=== PATIENT | female | born 1970 | race African-American/Black ===

== ENCOUNTER 2020-09-29 11:16 | Outpatient (CLI) | payer OTHER, SELFPAY ==
--- NOTE | ~2020-09-29 | CT_ITS ---
EXAMINATION: CT abdomen pelvis wo con DATE: 09/29/2020 11:55 INDICATION: Abdominal hernia TECHNIQUE: Computed tomography (CT) of the abdomen and pelvis was performed without intravenous contr ast. Automated exposure control and iterative reconstruction technique were employed. Exam dose: 559 .10 mGy-cm total exam DLP. COMPARISON: None. FINDINGS: Normal heart size. No pericardial or pleural effusion. The lung bases are clear. 2 hepatic cysts are noted, measuring up to 1.5 cm. The liver is otherwise unremarkable. The gallbladd er is present. No pericholecystic fluid or fat stranding. No bile duct dilatation. No pancreatic mass lesion, calcification or ductal dilatation. Normal splenic size. Normal morphology of the left adrenal gland. 12 mm right adrenal mass, most likely an adenoma if ther e is no history of malignancy. Approximately 2.5 mm nonobstructing right renal calculus. Approximately 2.5 mm nonobstructing left renal calculus. No ureteral calculus or hydroureteronephrosis. Normal caliber of the abdominal aorta. No intraperitoneal or retroperitoneal or pelvic mass lesion or adenopathy or ascites. Retroverted uterus. The urinary bladder is unremarkable. Mild colonic diverticulosis; no CT evidence of diverticulitis. Normal appendix. No bowel obstruction, bowel wall thickening, pneumatosis or intraperitoneal free air. Right L5 pars intra-articularis defect. Left L5 pars interarticularis is intact. No spondylolisthesis . No suspicious osteolytic or osteoblastic lesions are noted. IMPRESSION: 2 hepatic cysts measuring up to 1.5 cm Approximately 2.5 mm nonobstructing calculus of each kidney Mild colonic diverticulosis; no CT evidence of diverticulitis Retroverted uterus Normal appendix Right L5 pars interarticularis defect Reviewed, dictated and finalized at [facility] Reviewed, dictated and finalized at [facility].
== END 2020-09-29 11:17 | disposition home or self-care (01) ==
LOC: ANHIMG 11:23
PROVIDERS: Visit Provider Surgery Plastic and Reconstructive Surgery
DX: K46.9 Unspecified abdominal hernia without obstruction or gangrene (principal); K76.89 Other specified diseases of liver; N20.0 Calculus of kidney; K57.90 Diverticulosis of intestine, part unspecified, without perforation or abscess without bleeding; N85.4 Malposition of uterus; M53.86 Other specified dorsopathies, lumbar region
CPT/HCPCS: 74176

== ENCOUNTER 2021-01-22 00:20 | Day surgery (SDC) | payer OTHER, SELFPAY ==
[2021-01-14 12:42] VITALS: BMI 29.6
--- NOTE | 2021-01-14 12:52 | PC.NURSE ---
Report to the Outpatient Waiting Room, entrance under the green pavilion located off [facility], at time 1100 on date 01/22/21. OR Time: 1300. - You and your visitor will be asked a series of questions to screen for COVID 19 for your protection. - A mask is required within the hospital. - Only one visitor is allowed at this time. Patient visitors will be guided where to wait when not with patient. Preoperative COVID Testing Requirements: No COVID Test needed if: (proof is required; if not received patient will have Rapid Test prior to entry) - Patient has received COVID Vaccine at least 14 days prior to procedure date or - Patient has positive COVID test result within last 90 days of surgery date. COVID Test needed if above criteria is not met If not COVID vaccinated a COVID test must be conducted within 72 hours of surgery and patient is asked to isolate self from time of testing until procedure. You will go to the [facility] for your COVID testing. The [facility] site is located at the corner of [address] from [facility]. You will only be called if COVID results are positive and your surgeon may reschedule your elective surgery date. Patients may have clear liquids (water, carbonated beverages, clear teas, apple juice) until 3 hours prior to surgery with a maximum of 20 ounces. - No food from midnight until time of surgery - Infants may have breast milk until 4 hours before surgery, infant formula 6 hours prior to surgery. - Children will be allowed to drink immediately following surgery. If applicable, please bring a bottle or sippy cup to assist with drinking. Juice, water, soda, and popsicles are readily available. For infants on formula, please bring formula the day of surgery. Pacifiers are allowed. Take the following medications with a SIP of water the morning of surgery: NONE Medications to discontinue per physician: N/A Date to take last dose: N/A Please no make-up, nail cayman islander, hairspray, perfume, deodorant, or body powder the day of surgery. No jewelry (including any body piercings) or valuables the day of surgery, leave them at home. Please take a shower or bath the night before, or the morning of, surgery with an antibacterial soap. Wear comfortable, loose fitting clothing. Children are encouraged to wear pajamas. - Jewelry must be removed prior to entering the operating room. Rings and piercings that are not removed may be cut off. - The hospital will not accept responsibility for valuables. - Please leave all valuables, including medications, at home the day of surgery. If you are going home after surgery, a licensed superintendent drivers must drive you home. - NO public transportation without another adult. - We recommend that an adult stay with you for 24 hours following discharge. - We also recommend that you do not drive, make important decision, drink alcoholic beverages, or take any drugs that were not prescribed by your health care provider for at least 24 hours after your discharge time. For Pediatric surgeries, we recommend two adults accompany the child home (only one inside the building at this time). Follow any additional instructions given to you from your surgeon. Telephone instructions given to SAMMI LOPEZ and asked if any additional questions and then verbalized understanding. Patient advised to call surgeon office or pre surgery nurse liaison [phone] if any additional questions.
[2021-01-22] VITALS (9 sets, daily range): BP systolic 87–133; BP diastolic 62–99; PULSE 73–94; RESP 15–20; TEMP 36.3–36.8; O2SAT 93–100
[2021-01-22] MEDS: LACTATED RINGERS 1,000 ML 30 ML IV CONT ×2 (06:30→10:39)
[2021-01-22 06:34] LABS: Urine Cotinine NEGATIVE
--- NOTE | 2021-01-22 06:36 | P.PNAN_ITS ---
Anes - Initial Pre Proc Eval Procedure: Operation Date: 01/22/21 07:30 Proposed Procedures p Abdominoplasty - Edis Park MD Date/Time: 01/22/21 06:36 Surgeon: Edis Park MD Pre Op Diagnosis: skin laxity Patient Data Age: 50 Gender: F Height: 1.65 m Weight: 80.74 kg Allergies Allergy/AdvReac Type Severity Reaction Status Date / Time No Known Allergies Allergy Unverified 01/14/21 12:41 Home Medications Medication Instructions Recorded Confirmed Type docusate sodium 100 mg capsule 100 mg PO DAILY #14 cap 01/08/21 01/14/21 Rx ondansetron HCl 4 mg tablet 4 mg PO Q8H #21 tablet 01/08/21 01/14/21 Rx carisoprodol 350 mg tablet 350 mg PO TID PRN #21 tablet 01/09/21 01/14/21 Rx diazepam 5 mg tablet 5 mg PO TID PRN #15 tablet 01/09/21 01/14/21 Rx oxycodone-acetaminophen 5 mg-325 1 tablet PO Q6H PRN #30 tablet 01/09/21 01/14/21 Rx mg tablet zolpidem [Ambien] 5 mg PO HS 01/14/21 01/14/21 History Laboratory Tests 01/22/21 06:15 Cotinine Negative Patient hx anesthesia problems: none Family hx anesthesia problems: none Results Review: All pre-operative results and documents have been reviewed as part of the pre-operative evaluation. [facility] Surgical History Surgical History History of Social History Social History Smoking status: Never smoker Alcohol intake: never Substance use: never Substance use type: does not use Living arrangements: alone Spiritual care concerns: No Anes - Eval Final PreProcedure Day of Procedure 01/22/21 06:36 Patient weight: overweight Heart: regular rate and rhythm Lungs: clear to auscultation Airway: Mallampati scale class II Neurological: alert and oriented Last oral intake: >/= 8 hours ASA classification: II Emergent: no Anesthetic plan: proceed Anesthesia type and monitoring: general ETT and standard monitoring Results Review: All pre-operative results and documents have been reviewed as part of the pre-operative evaluation. Informed Consent: The patient's anesthetic plan and its attendant risks and benefits were discussed with the patient/family/POA. Questions were solicited and answers provided to the satisfaction of the patient/family/POA.
--- NOTE | 2021-01-22 06:56 | WPDHPUPDATE1 ---
History and Physical Update Update Date/Time: 01/22/21 06:56 History and Physical has been reviewed, including an updated exam of the patient. There are NO changes in the patient's condition. Risks, benefits, and alternatives have been discussed and questions answered. Patient agrees to proceed with procedure.
[2021-01-22] MEDS: TRANEXAMIC ACID 1,000MG/ISO100 1,000 MG/100 ML BAG 200 MG IVPB (07:00)
--- NOTE | 2021-01-22 07:07 | P.OP_ITS ---
Procedure Note - Detailed Date of Procedure 01/22/21 Pre-op Diagnosis skin laxity Post-op Diagnosis same Procedure Performed Progressive tension abdominoplasty Surgeon Edis Park MD Anesthesia general Findings Tissue removed: 2252 grams Description of Procedure They are here today for abdominoplasty. Previously and again today the risks, benefits, alternatives were discussed in extensive detail. I wanted them to be very realistic about the risks involved as well as expectations. We discussed aftercare and what to monitor for. I was very upfront about the risks of wound breakdown leading to loss of skin, open wounds, and need for additional proc edures with permanent abdominal deformity. We discussed DVT/PE risks and management. Made sure answered all of their questions to their satisfaction today and consent was obtained. They were marked in the preoperative holding area with their verification. The patient was taken to the operating room placed supine on the operating table. Anesthesia was provided by anesthesiology. A Lemon catheter was started. They were prepped and draped in a standard sterile fashion. A surgical time-out was taken. I placed the patient in a flexed position to verify the upper and lower markings would reach. I then placed supine. A thorough abdominal examination was completed. Stab incisions were made and tumescent solution infiltrated. A liposuction basket cannula was utilized to provide discontinuous undermining. A 10 blade was used to make the upper incision. I continued dissection down to the level of fascia. Elevated just what was necessary for repair of the diastasis. I then again flexed the bed to verify the upper skin flap would reach the lower markings without tension. Once verified I placed her supine once again and a 10 blade used to make the lower incision. I elevated up to level the umbilicus and left the umbilicus intact on a well-vascularized stalk. The intervening tissue was removed. A 2 mm blunt cannula with 0.5% bupivicaine was injected deep to the fascia cachorro aterally. I plicated the diastasis recti using 0 PDO stratafix barbed suture. This was in 2 separate layers using 2 separate sutures as well. I repaired around the umbilicus leaving plenty of room for well-vascularized stalk of the umbilicus with 2-0 PDS. I also repaired lateral to the rectus using two layers of 0 PDO stratafix. The patient was flexed and starting from superior to inferior began plication using 2-0 Vicryl to obliterate all space in a standard progressive tension fashion. At the umbilicus I marked out the location of the skin and inset this with 3-0 Monocryl and 4-0 Vicryl. I continued the remainder of the plication using 2-0 Vicryl until I reached my lower planned scar line. I trimmed any excess skin of the upper flap making sure this was a tension-free closure. I then approximated using a 3 point suture with 2-0 Vicryl followed by 3-0 stratafix ,running subcuticular 4-0 Monocryl, and tissue glue. Fluffs and an abdominal binder were placed. The patient was transferred to the bed in a flexed position. Awoken and taken to the PACU without difficulty. All instrument and sponge counts were correct at the end of the case. Estimated Blood Loss 50 Drains No Packing No Pathology none sent Complications No immediate complications Condition stable Disposition PACU
[2021-01-22] MEDS: LACTATED RINGERS IRRIG 1,000 ML, LIDOCAINE HCL 1% LOCAL INJ 50 ML, EPINEPHrine HCL INJ ... INFILTRATE (07:26)
[2021-01-22] MEDS: BUPIVACAINE HCL 0.5% PF 30 ML VIAL INFILTRATE (07:26)
[2021-01-22] MEDS: ceFAZolin 2 GM/D5W 50 ML 2 GM/50 ML BAG IVPB (07:26)
--- NOTE | 2021-01-22 10:15 | SUR.OPER ---
URINE:300cc
--- NOTE | 2021-01-22 10:15 | SUR.OPER ---
EBL:50cc
[2021-01-22] MEDS: fentaNYL CITRATE INJ (*CRX) 100 MCG/2 ML VIAL 25 MCG IV PUSH ×4 (10:50→11:26)
--- NOTE | 2021-01-22 11:48 | PC.NURSE ---
This patient, Mary Ann Henriquez, was received from PACU on 01/22/21 at 1148. Patient/family oriented to unit policies and routines
[2021-01-22] MEDS: LACTATED RINGERS 1,000 ML 125 ML IV CONT ×2 (12:40→20:46)
[2021-01-22] MEDS: MORPHINE SULFATE (*CRX) 2 MG/ML INJ IV PUSH ×2 (12:42→15:03)
[2021-01-22] MEDS: carisoprodoL (*CRX) 350 MG TABLET PO (17:20)
[2021-01-22] MEDS: ENOXAPARIN 40 MG/0.4 ML SYRINGE SUB-Q (17:20)
[2021-01-22] MEDS: oxyCODONE/ACETAMINOPHEN (*CRX) 5-325 MG TABLET PO (19:01)
[2021-01-22] MEDS: DOCUSATE SODIUM 100 MG CAPSULE PO (21:23)
[2021-01-23] MEDS: MORPHINE SULFATE (*CRX) 2 MG/ML INJ IV PUSH ×3 (00:16→05:02)
[2021-01-23 01:00] VITALS: BP 122/64; PULSE 92; RESP 16; TEMP 36.7; O2SAT 96
[2021-01-23] MEDS: carisoprodoL (*CRX) 350 MG TABLET PO ×3 (01:11→12:52)
[2021-01-23 04:45] VITALS: BP 126/70; PULSE 86; RESP 18; TEMP 37.1; O2SAT 95
[2021-01-23] MEDS: LACTATED RINGERS 1,000 ML 125 ML IV CONT (05:33)
--- NOTE | 2021-01-23 06:31 | WPDPN ---
Progress Note: A&P Assessment and Plan (1) Skin laxity: Code(s): L57.4 - Cutis laxa senilis Status: Acute Assessment and Plan: She is doing very well after progressive tension abdominoplasty. Will plan for discharge home. I will see her back. Call with any questions or concerns. Today we had a lengthy discussion about the care. What monitor for. Activity limitations. This was a lengthy open-ended conversation making sure she was well informed. She understands she can call at any time with any questions or concerns. Will plan for discharge home. I will see her back. (2) History of COVID-19: Code(s): Z86.16 - Personal history of COVID-19 Status: Acute Assessment and Plan: December 2020 Subjective Date/time seen: 01/23/21 06:31 She is doing very well after progressive tension abdominoplasty. She has tolerated p.o.. Ambulated. Pain is controlled. No shortness of breath. No chest pain. No calf tenderness. Review of Systems Review of Systems: All systems reviewed & are unremarkable except as noted in HPI and below Exam Narrative: Alert and oriented no obvious distress Respiratory unlabor Abdomen soft. No signs of infection. No hematoma. No seroma. Good color and capillary refill. No calf tenderness. Negative Homans. Objective Data Vital Signs Vital Signs: Vital Signs - 24 hr 01/22/21 10:45 01/22/21 11:00 01/22/21 11:15 Temperature 36.7 C Pulse Rate 93 81 83 Respiratory Rate 16 16 20 Blood Pressure 133/99 H 130/89 119/96 H Pulse Oximetry 100 100 96 01/22/21 11:30 01/22/21 12:10 01/22/21 15:30 Temperature 36.8 C 36.3 C L Pulse Rate 73 74 94 Respiratory Rate 15 16 16 Blood Pressure 118/89 116/83 87/62 L Pulse Oximetry 93 94 96 01/22/21 19:00 01/22/21 20:00 01/23/21 01:00 Temperature 36.7 C 36.7 C Pulse Rate 89 88 92 Respiratory Rate 18 16 Blood Pressure 106/76 116/78 122/64 Pulse Oximetry 97 95 96 01/23/21 04:45 Temperature 37.1 C Pulse Rate 86 Respiratory Rate 18 Blood Pressure 126/70 Pulse Oximetry 95 Intake/Output Intake/Output: Intake & Output 01/20/21 01/21/21 01/22/21 01/23/21 23:59 23:59 23:59 23:59 Intake Total 2540 1000 Output Total 800 150 Balance 1740 850 Meds/Results Medications: Active Medications Generic Name Dose Route Start Last Admin Trade Name Freq PRN Reason Stop Dose Admin Carisoprodol 350 mg 01/22/21 18:00 01/23/21 01:11 Carisoprodol (*Crx) 350 Mg Tablet PO 350 mg Q6HR HARSH Administration Diazepam 5 mg 01/22/21 10:19 Diazepam (*Crx) 5 Mg Tablet PO TID PRN Anxiety Docusate Sodium 100 mg 01/22/21 21:00 01/22/21 21:23 Docusate Sodium 100 Mg Capsule PO 100 mg Q12HR HARSH Administration Enoxaparin Sodium 40 mg 01/22/21 17:00 01/22/21 17:20 Enoxaparin 40 Mg/0.4 Ml Syringe SUB-Q 40 mg DAILY HARSH Administration Lactated Ringer's 1,000 mls @ 125 mls/hr 01/22/21 10:20 01/23/21 05:33 Lr - Lactated Ringers Iv IV CONT 125 mls/hr .Q8H HARSH Administration Morphine Sulfate 2 mg 01/22/21 10:19 01/23/21 05:02 Morphine Sulfate (*Crx) 2 Mg/Ml Inj IV PUSH 2 mg Q2H PRN Administration Pain Ondansetron HCl 4 mg 01/22/21 10:19 Ondansetron Inj 4 Mg/2 Ml Vial IV PUSH Q6H PRN Nausea Oxycodone/Acetaminophen 1 - 2 tablet 01/22/21 10:19 01/22/21 19:01 Oxycodone/Acetaminophen (*Crx) 5-325 Mg Tablet PO 2 tablet Q6H PRN Administration Pain Labs Labs: Laboratory Results - last 24 hr 01/22/21 06:15 Cotinine Negative
--- NOTE | 2021-01-23 06:34 | P.DS_ITS ---
DS: Admitting Diagnosis Discharge Date 01/23/2021 Admitting Diagnosis Skin laxity DS: Discharge Diagnosis Discharge Diagnosis (1) Skin laxity: Code(s): L57.4 - Cutis laxa senilis Status: Acute (2) History of COVID-19: Code(s): Z86.16 - Personal history of COVID-19 Status: Acute DS: Summary Hospital Course Hospital Course: She underwent progressive tension abdominoplasty. Postoperatively she has done very well. Will plan for discharge home Time Spent with Patient Time attestation: Total time spent providing and/or coordinating discharge services: Exam Narrative: Alert and oriented no obvious distress Respiratory unlabor Abdomen soft. No signs of infection. No hematoma. No seroma. Good color and capillary refill. No calf tenderness. Negative Homans. DS: Data Data Completed and Pending Labs on day of discharge: Labs from last 24 hours 01/22/21 06:15 Cotinine Negative Discharge Plan Discharge Patient Disposition: Home, Self-Care Discharge Instructions: POST OPERATIVE DISCHARGE INSTRUCTIONS EDIS PARK M.D. [facility] PLASTIC SURGERY [facility] [facility] [address] [place] [address] * No driving for 24 hours after anesthesia and while you are taking pain medication. * Take all prescribed medication as directed * Diet as tolerated. * No lifting or activity that raises blood pressure for 48 hours. * Regular walking / ambulation. * No showering until directed to. Once you shower do not take pain medication before showering as the combination of medication and heat may cause you to feel dizzy or pass out. * No pools or tubs for 2 weeks. * Call with any questions or concerns. * No straining or lifting more than 20 pounds for 6 weeks. * Slowly stand up straight as tolerated over 1 week. * Dressing Care: May shower in 24 hours. If you have any questions or concerns, please call the office . If it is after hours you will be directed to the financial sales consultant exchange. Shortness of breath, chest pain, or other medical emergency dial 911 / proceed to the Emergency Room. Stand Alone Forms: General Discharge Instructions Follow-up/Referrals: Edis Park MD [Physician] - 1 Week Discharge Medications: Continued docusate sodium [Colace] 100 mg capsule 100 mg PO DAILY Qty: 14 RF: 0 ondansetron HCl [Zofran] 4 mg tablet 4 mg PO Q8H Qty: 21 RF: 0 oxycodone-acetaminophen [Percocet] 5-325 mg tablet 1 tablet PO Q6H PRN (Reason: pain) Qty: 30 RF: 0 carisoprodol [Soma] 350 mg tablet 350 mg PO TID PRN (Reason: muscle pain) Qty: 21 RF: 0 diazepam [Valium] 5 mg tablet 5 mg PO TID PRN (Reason: anxiety) Qty: 15 RF: 0 zolpidem [Ambien] 5 mg Tablet 5 mg PO HS RF: 0
[2021-01-23] MEDS: DOCUSATE SODIUM 100 MG CAPSULE PO (07:01)
[2021-01-23] MEDS: oxyCODONE/ACETAMINOPHEN (*CRX) 5-325 MG TABLET PO (07:01)
[2021-01-23 08:40] VITALS: BP 111/78; PULSE 92; RESP 16; TEMP 37.4; O2SAT 93
--- NOTE | 2021-01-23 10:17 | WPDANESPN ---
Anes - Prog Note Post-Op Date/Time: 01/23/21 10:17 Cardiovascular status: normal Respiratory status: normal Airway patency: baseline Mental status: baseline Post-Op hydration status: normal Vital Signs: Last Vital Signs Temp 37.4 C 01/23/21 08:40 Pulse 92 01/23/21 08:40 Resp 16 01/23/21 08:40 BP 111/78 01/23/21 08:40 Pulse Ox 93 01/23/21 08:40 Pain Score (VAS): 0 I/O: Intake & Output 01/22/21 01/23/21 01/23/21 23:59 07:59 15:59 Intake Total 1240 1000 Output Total 650 550 Balance 590 450 Post-procedural complaints: none Patient Feedback: Patient satisfied with anesthetic care.
[2021-01-23] MEDS: IBUPROFEN 600 MG TABLET PO (10:43)
[2021-01-23] MEDS: ACETAMINOPHEN 325 MG TABLET 650 MG PO (12:52)
[2021-01-23 13:00] VITALS: BP 122/87; PULSE 82; RESP 18; TEMP 36.8; O2SAT 95
== END 2021-01-23 14:52 | disposition home or self-care (01) ==
LOC: ANHSURGERY 07:12 → ANHOB2 12:31
PROVIDERS: Visit Provider Surgery Plastic and Reconstructive Surgery
PROC: (CPT 15830; principal; 2021-01-22 07:30)
DX: Z41.1 Encounter for cosmetic surgery (principal); L57.4 Cutis laxa senilis; Z79.899 Other long term (current) drug therapy; Z86.16 Personal history of COVID-19
CPT/HCPCS: 15830; 15847; 80307; 99199; A9270; J0171; J0330; J0690; J1100; J1170; J1650; J2250; J2270; J2405; J2704; J3010; J7120

== ENCOUNTER 2024-12-16 13:27 | Outpatient (CLI) | payer MEDICAID, SELFPAY ==
--- NOTE | ~2024-12-16 | MM_ITS ---
EXAMINATION: MM screening gen BI w jeremiah HISTORY: Screening TECHNIQUE: Craniocaudal and mediolateral oblique 3-D tomosynthesis images were obtained and synthetic 2-D images were generated. CAD analysis was submitted and interpreted. COMPARISON: No prior mammogram is available for comparison at this institution. BREAST PARENCHYMAL COMPOSITION: Not Dense: The breasts are almost entirely fatty. FINDINGS: There is no evidence of suspicious mass, calcification, or architectural distortion to suggest malignancy in either breast. There has been no suspicious interval change. IMPRESSION: 1. No mammographic evidence of malignancy. 2. Recommend routine screening mammography in one year. BI-RADS Category 1: Negative Reviewed, dictated and finalized at location O. ATE SECRETARY
--- NOTE | ~2024-12-16 | DEXA_ITS ---
Bone Density Report Name: SAMMI LOPEZ Age: 54 Sex: Female Ethnicity: White Date of : 1970 Indication: postmenopausal; screening for osteoporosis; Referring Provider: GREG BOOGIE Study: Bone densitometry was performed. Exam Date: December 16, 2024 Accession number: [id number] Bone Density: Region BMD T-score Z-score Classification AP Spine(L1-L4) 0.992 -0.5 0.4 Normal Femoral Neck (Left) 0.776 -0.7 0.3 Normal Total Hip (Left) 0.983 0.3 0.9 Normal Femoral Neck (Right) 0.869 0.2 1.1 Normal Total Hip (Right) 1.040 0.8 1.4 Normal Total Hip Mean 1.011 0.6 1.2 Normal World Health Organization criteria for BMD impression classify patients as: Normal (T-score at or above -1.0), Osteopenia (T-score between -1.0 and -2.5), or Osteoporosis (T-score at or below -2.5). 10-year Fracture Risk: FRAX not reported because: All T-scores for Spine Total, Hip Total, Femoral Neck at or above -1.0 Impression: The patient has normal bone mass. Discussion: BONE DENSITY IS ABOVE THE MINIMUM DESIRABLE LEVEL AT ALL SKELETAL SITES TESTED. This patient?s bone mineral density is above the minimum desirable level (T-score -1.0 or better) at all sites measured. The patient should follow a healthful lifestyle (good nutrition with adequate calcium and vitamin D, and appropriate weight-bearing exercise). Follow-Up: Consider repeating this study in 5 years or sooner if there is some new clinical indication. Reported by: KAY on 12/16/2024 2:10:00 PM. Reviewed, dictated and finalized at location A.
--- OUTSIDE RECORDS SUMMARY | 2024-12-16 13:30 | XMS_ITS | Encounter Summary ---
Author Organization [facility] Healthcare Address [address] [place] [address] Care Team Providers Care Turbo Operator Name Role Phone Unknown, Notinfile Primary Care Provider Unavail able Alexandre Bowser MD Primary Care Provider [phone] Reason for Visit * Reason Onset Date Comments Test Results 10/16/2024 Encounter Details Date Type Department Care Team (Late st Contact Info) Description 10/16/2024 Results Follow-Up [facility] Internal Medicine [address] [place] [id number] Alexandre Bowser MD [address] [place] [id number] Hepatitis C antibody Blood, CBC with auto differential, Comprehensive metabolic panel, Additional followed-up results: 3 Social History Tobacco Use Types Packs/Day Years Used Date Smoking Tobacco: Never Smokeless Tobacco: Never AUDIT-C Answer Date Recorded Q1: How often do you have a drink containing alcohol? Never 08/15/2024 Q2: How many drinks containi ng alcohol do you have on a typical day when you are drinking? Patient does not drink Q3: How often do you have si x or more drinks on one occasion? 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 Yes Where were results relayed from in the chart? Telephone encounter Additional Questions/Comments: Patient returned call, AC read her the result notes. Patient verbalized understanding. Does message need to be routed? Yes-FYI Only documented in this encounter Plan of Treatment Not on file documented as of this encounter Visit Diagnoses Not on filedocumented in this encounter Care Teams Turbo Operator Relationship Specialty Start Date End Date Unknown, Notinfile PCP - General 05/28/22 10/17/24 Alexandre Bowser MD [facility] [place] [address] PCP - General Internal Medicine 10/18/24 documented as of this encounter
--- OUTSIDE RECORDS SUMMARY | 2024-12-16 13:31 | XMS_ITS | Clinical Summary ---
Author Organization [facility] Address [address] [place] [address] Care Team Providers Care Hse Manager Name Role Phone Alexandre Bowser MD Primary Care Provider [phone] Allergies No known active allergies Medications vitamin B complex capsule Take 1 capsule by mouth daily Active NON FORMULARY, FOR INPATIENT USE, MONOLAURIN 1000MG Active cholecalciferol (Vitamin D3) 5,000 unit tablet Active acidophilus-pec tin, citrus 100 million cell-10 mg capsule Take by mouth Activ e multivitamin with minerals tablet Take 1 tablet by mouth daily Active Active Problems Problem Noted Date Diagnosed Date Routine general medical exam ination at a health care facility 08/15/2024 Assessment & Plan (08/15/2024 9:29 AM CDT): Patient uses seatbelt. She exercises on regular basis. Encouraged exercise 30 minutes daily 5 days a week. She does not smoke or drink alcohol. Blood work was ordered. She received Tdap vaccine. Patient is followed by senior software engineer analytics. She is up-to-date with mammogram. She is scheduled for colonoscopy. Encounters Date Type Department Care Team Description 10/16/2024 Results Follow-Up [facility] Internal Medicine [address] [facility] [address] [place] [id number] Alexandre Bowser MD Hepatitis C antibody Blood, CBC with auto differential, Comprehensive metabolic panel, Additional followed-up results: 3 10/14/2024 7:40 AM CDT Lab [facility] [address] [place] [id number] Routine general medical examination at a health care facility from Last 3 Months Immunizations Immunization Administration Dates Next Due DTP 02/28/1974,10/01/1972,07/23/1972 ,06/25/1972,1971 Measles 12/07/1972 Measles / Rubella 09/27/1976 Mumps 10/27/1980 OPV 10/27/1980,07/29/1973,07/23/1972 ,06/25/1972,1971 Td, adsorbed 04/01/1991 Tdap 08/15/2024 Surgical History Surgery Date Site/Laterality Comments SECTION 02/09/1994 - 02/08/1995 Family History Medical History Relation Name Comments Lung cancer Father Stomach cancer Mother Relation Name Status Comments Father Mother Social History Tobacco Use Types Packs/Day Years Used Date Smoking Tobacco: Never Smokeless Tobacco: Never Tobacco Cessation:Counseling Given: Not Answered AUDIT-C Answer Date Recorded Q1: How often [...] on file Legal 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 Gender Identity Not on file Sexual Orientation Not on file Last Filed Vital Signs Vital Sign Reading Time Taken Comments Blood Pressure 110/72 08/15/2024 8:25 AM CDT Pulse 84 08/15/2024 8:25 AM CDT Temperature 36.1 C (97 F) 08/15/2024 8:25 AM CDT Respiratory Rate 18 08/15/2024 8:25 AM CDT Oxygen Saturation 96% 08/15/2024 8:25 AM CDT Inhaled Oxygen Concentration - - Weight 87.5 kg (193 lb) 08/15/2024 8:25 AM CDT Height 167.6 cm (5' 6) 08/15/2024 8:25 AM CDT Body Mass Index 31.15 08/15/2024 8:25 AM CDT Plan of Treatment Health Maintenance Due Date Last Done Comments Cervical Cancer Screening 1970 Colon Cancer Screening-Colonoscopy 1970 Hepatitis B Screening 10/20/1989 Breast Cancer Screening-Mammogram 03/24/2014 03/24/2013 Zoster Vaccine (1 of 2) 10/20/2021 Covid-19 Vaccine (3 - season) 2024 01/07/2021, 11/30/2020 Influenza Vaccine (#1) 2024 Depression Screening 08/15/2025 08/15/2024 Regular Well Visit/Exam 18-64 08/15/2025 08/15/2024 DTaP/Tdap/Td Vaccine (6 - Td or Tdap) 08/15/2034 08/15/2024, 04/01/1991, 02/28/1974, Additional history exists Hepatitis C Screening Completed 10/14/2024 Pneumococcal vaccine <65 Aged Out No longer eligible based on patient's age to complete this topic Procedures Procedure Name Priority Date/Time Associated Diagnosis Comments EGFR Routine 10/14/2024 7:56 AM CDT Routine general medical examination at a health care facility DIFFERENTIAL AUTO Routine 10/14/2024 7:5 6 AM CDT Routine general medical examination at a health care facility LIPID PANEL Routine 10/14/2024 7:56 AM CDT Routine general medical examination at a health care facility COMPREHENSIVE METABOLIC PANEL Routine 10/14/2024 7:56 AM CDT Routine general medical examination at a health care facility CBC WITH AUTO DIFFERENTIAL Routine 10/14/2024 7:56 AM CDT Routine general medical examination at a health care facility HEPATITIS C ANTIBODY Routine 10/14/2024 7:56 AM CDT Routine general medical examination at a health care facility SCREENING MAMMOGRAM Routine 03/24/2013 3 :47 PM JEWEL HOLE FINISH OPENER from Last 3 Months or Most Recently Relevant to Health Maintenance Results * eGFR (10/14/2024 7:56 AM CDT) [facility] eGFR >90 >=60 mL/min/1. 73 m2 Comment: Interpretive Data Reference Interval Normal >/= 90 mL/min/1.73m2 Mildly decreased* 60 - 89 mL/min/1.73m2 Mildly to moderately decreased 45 - 59 mL/min/1.73m2 Moderately to severely decreased 30 - 44 mL/min/1.73m2 Severely decreased 15 - 29 mL/min/1.73m2 Kidney Failure < 15 mL/min/1.73m2 *Relative to young adult level Estimated glomerular filtration rate is determined by the 2020 CKD-EPI equation recommended by the National Kidney Foundation (A Unifying Approach to GFR Estimation: Recommendations of the NKF-ASK Task Force on Reassessing the Inclusion of Race in Diagnosing Kidney Disease, JASN 2020). The CKD-EPI equation should not be used for patients with unstable renal function and has not been validated in children and those over 70. Current interpretive data was last reviewed 2020. Blood 10/14/2024 7:56 AM CDT 10/14/2024 8:19 AM CDT Alexandre Bowser MD LAB BLOOD ORDERABLES Final Result [facility] [address] [facility] Department of Laboratories [place], [place] [id number] * Differential, auto (10/14/2024 7:56 AM CDT) [facility] Neutrophil abs 2.90 1.50 - 6.50 K/cumm Imm gran abs 0.01 0.00 - 0.10 K/cumm [facility] Lymphocyte abs 2.04 0.80 - 3.30 K/cumm [facility] Monocyte abs 0.40 0.20 - 0.80 K/cumm [facility] Eosinophil abs 0.33 0.00 - 0.50 K/cumm [facility] Basophil abs 0.02 0.00 - 0.10 K/cumm [facility] Neutrophil pct 50.8 % [facility] Comment: Interpretive Data Percent cell count reference ranges are not reported, since discordance with absolute values may lead to misinterpretation of CBC data. Current Interpretive Data was last revised on 2017. Imm gran pct 0.2 % [facility] Comment: Interpretive Data Percent cell count reference ranges are not reported, since discordance with absolute values may lead to misinterpretation of CBC data. Current Interpretive Data was last revised on 2017. Lymphocyte pct 35.8 % [facility] Comment: Interpretive Data Percent cell count reference ranges are not reported, since discordance with absolute values may lead to misinterpretation of CBC data. Current Interpretive Data was last revised on 2017. Monocyte pct 7.0 % [facility] Comment: Interpretive Data Percent cell count reference ranges are not reported, since discordance with absolute values may lead to misinterpretation of CBC data. Current Interpretive Data was last revised on 2017. Eosinophil pct 5.8 % [facility] Comment: Interpretive Data Percent cell count reference ranges are not reported, since discordance with absolute values may lead to misinterpretation of CBC data. Current Interpretive Data was last revised on 2017. Basophil pct 0.4 % [facility] Comment: Interpretive Data Percent cell count reference ranges are not reported, since discordance with absolute values may lead to misinterpretation of CBC data. Current Interpretive Data was last revised on 2017. Blood 10/14/2024 7:56 AM CDT 10/14/2024 8:19 AM CDT Alexandre Bowser MD LAB BLOOD ORDERABLES Final Result [facility] [address] [facility] Department [place] [address] * (ABNORMAL) CBC with auto differential (10/14/2024 7:56 AM CDT) WBC 5.70 3.80 - 9.90 K/cumm Hgb 14.4 11.9 - 15.5 g/dL [facility] Hct 42.6 35.6 - 45.5 % [facility] Plt 278 150 - 400 K/cumm [facility] MPV 10.3 9.1 - 12.3 fL [facility] RBC 5.58(H) 3.90 - 5.20 M/cumm [facility] MCV 76.3(L) 81.3 - 96.4 fL [facility] MCH 25.8(L) 27.1 - 33.3 pg [facility] MCHC 33.8 32.3 - 35.7 g/dL [facility] RDW CV 13.9 11.1 - 14.9 % [facility] RDW SD 37.7 35.7 - 48.1 fL [facility] NRBC abs 0.00 0.00 - 0.01 K/cumm [facility] Blood 10/14/2024 7:56 AM CDT 10/14/2024 8:19 AM CDT Alexandre Bowser MD LAB BLOOD ORDERABLES Final Result Performing Organization Address [facility] de Phone Number [address] [place] [address] * Hepatitis C antibody Blood (10/14/2024 7:56 AM CDT) Hep C Ab Nonreactive Nonreactive Comment: Antibodies to HCV not detected. Does NOT exclude the possibility of recent exposure to HCV. Current interpretive data was last revised on 21 Interpretive Data Nonreactive: Antibodies to HCV not detected. Does NOT exclude the possibility of recent exposure to HCV. Equivocal: Equivocal for HCV antibodies. Supplemental molecular testing will be automatically performed to determine infection status in accordance with current CDC screening recommendations. Reactive: Positive for HCV antibodies. This may represent current or past HCV infection. Supplemental molecular testing will be automatically performed to determine current infection status in accordance with current CDC screening recommendations. Interpretive data was last revised on 2019. Blood 10/14/2024 7:56 AM CDT 10/14/2024 8:19 AM CDT Alexandre Bowser MD LAB MICROBIOLOGY - GENERAL ORDERABLES Final Result Performing Organization Address [facility] de Phone Number [address] [place] [address] * Lipid panel (10/14/2024 7:56 AM CDT) Cholesterol 159 30 - 199 mg/dL Comment: Interpretive Data Ages < or = 19 years Acceptable: <170 mg/dL Borderline high: 170-199 mg/dL High: >or= 200 mg/dL Ages > or = 20 years Desirable: <200 mg/dL Borderline high: 200-239 mg/dL High: >or= 240 mg/dL Literature References: 1. Expert Panel on Integrated Guidelines for Cardiovascular Health and Risk Reduction in Children and Adolescents. Pediatrics 2011;128:S213 2. NCEP Expert Panel. Circulation 2004;110:227 Current Interpretive Data was last revised on 2017. Triglycerides 69 <=149 mg/dL [facility] Comment: Interpretive Data Ages < or = 9 years Acceptable: <75 mg/dL Borderline high: 75-99 mg/dL High: >or= 100 mg/dL Ages 10 to 20 years Acceptable: <90 mg/dL Borderline high: 90-129 mg/dL High: >or= 130 mg/dL Ages > or = 20 years Desirable: <150 mg/dL Borderline high: 150-199 mg/dL High: 200-499 mg/dL Very high: >or= 499 mg/dL Literature References: 1. Expert Panel on Integrated Guidelines for Cardiovascular Health and Risk Reduction in Children and Adolescents. Pediatrics 2011;128:S213 2. NCEP Expert Panel. Circulation 2004;110:227 Current Interpretive Data was last revised on 2017. HDL 51 >=40 mg/dL [facility] Comment: Interpretive Data Ages < or = 19 years Acceptable: >45 mg/dL Borderline low: 40-45 mg/dL Low: <40 mg/dL Ages > or = 20 years Desirable: >or= 60 mg/dL Low: <40 mg/dL Literature References: 1. Expert Panel on Integrated Guidelines for Cardiovascular Health and Risk Reduction in Children and Adolescents. Pediatrics 2011;128:S213 2. NCEP Expert Panel. Circulation 2004;110:227 Current Interpretive Data was last revised on 2017. LDL, calculated 95 <=129 mg/dL [facility] Comment: Interpretive Data Ages < or = 19 years Acceptable: <110 mg/dL Borderline high: 110-129 mg/dL High: >or= 130 mg/dL Ages > or = 20 years Optimal: <100 mg/dL Near optimal: 100-129 mg/dL Borderline high: 130-159 mg/dL High: >160 mg/dL Calculated using the Raciel LDL-C estimating equation. This equation was implemented on 2023. Prior to this date LDL-C was estimated using the Friedewald equation. Literature References: 1. Expert Panel on Integrated Guidelines for Cardiovascular Health and Risk Reduction in Children and Adolescents. Pediatrics 2011;128:S213 2. NCEP Expert Panel. Circulation 2004;110:227 3. Raciel Gottlieb et al. SOPHIE Cardiol. 2019June 09;5(5):540-548. doi: 10.1001/jamacardio.2020.0013 Current Interpretive Data was last revised on 2023. Non-HDL Cholesterol 108 mg/dL [facility] Comment: Interpretive Data Ages < or = 19 years Acceptable: <120 mg/dL Borderline high: 120-144 mg/dL High: >145 mg/dL Ages > or = 20 years When triglycerides are >200 mg/dL, Non-HDL cholesterol is a secondary target of therapy with treatment goals that are 30 mg/dL greater than the LDL cholesterol target. Literature References: 1. Expert Panel on Integrated Guidelines for Cardiovascular Health and Risk Reduction in Children and Adolescents. Pediatrics 2011;128:S213 2. NCEP Expert Panel. Circulation 2004;110:227 Current Interpretive Data was last revised on 2017. Chol/HDL ratio 3 [facility] Blood 10/14/2024 7:56 AM CDT 10/14/2024 8:19 AM CDT Narrative [facility] - 10/14/2024 9:00 AM CDT Has the patient been fasting for 8 hours or more?->Yes Alexandre Bowser MD LAB BLOOD ORDERABLES Final Result [facility] [address] Department [place] [address] * Comprehensive metabolic panel (10/14/2024 7:56 AM CDT) Sodium 141 135 - 145 mmol/L Potassium, pl 4.5 3.3 - 4.9 mmol/L [facility] Chloride 107 97 - 110 mmol/L [facility] CO2 25 22 - 32 mmol/L [facility] Anion gap 9 2 - 15 mmol/L [facility] BUN 6 6 - 25 mg/dL [facility] Creatinine 0.76 0.60 - 1.10 mg/dL [facility] Glucose 105 70 - 199 mg/dL [facility] Comment: Interpretive Data Fasting glucose >/= 126 mg/dl is diagnostic for diabetes. Fasting is defined as no caloric intake for at least 8 hours. Fasting glucose between 100 mg/dl to 125 mg/dl is diagnostic of prediabetes. In a patient with classic symptoms of hyperglycemia or hyperglycemic crisis, a random glucose >/= 200 mg/dl is diagnostic for diabetes. In the absence of unequivocal hyperglycemia, results should be confirmed by repeat testing. The classification and Diagnosis of Diabetes Diabetes Care 2021; 46: S19-S40. Current interpretive data was last revised 2022. Calcium 10.0 8.5 - 10.3 mg/dL [facility] Bilirubin, total 0.3 0.1 - 1.2 mg/dL [facility] Protein, pl 7.4 6.5 - 8.5 g/dL [facility] Albumin 4.2 3.5 - 5.0 g/dL [facility] Alk phos 73 40 - 130 Units/L [facility] ALT 19 7 - 45 Units/L [facility] AST 24 10 - 45 Units/L [facility] Blood 10/14/2024 7:56 AM CDT 10/14/2024 8:19 AM CDT Alexandre Bowser MD LAB BLOOD ORDERABLES Final Result [facility] [address] [facility] Department [place] [address] * Screening Mammogram (03/24/2013 3:47 PM JEWEL [employer]LE FINISH OPENER) Anatomical Region Laterality Modality Breast N/A Mammography 03/24/2013 3:47 PM JEWEL [employer]LE FINISH OPENER Narrative 03/25/2013 4:18 PM JEWEL [employer]LE FINISH OPENER RICHI PECK M.D. FINAL REPORT ACC# Date Time Exam [id number] Mar 24, 2013 15:47:00 [facility] [address] Screening Mamm Bilat Technologist(s): Yolande Victoria; ; EXAMINATION: Mammogram Technique: Bilateral Full-Field Digital Screening Mammogram was performed. Views obtained: bilateral craniocaudal and bilateral mediolateral oblique. Computer Aided Detection was performed with [employer] 1.3 version 9.3. Mammogram Findings: This is a baseline study. There are scattered fibroglandular densities. There is no suspicious abnormality in either breast. IMPRESSION: Annual screening mammography is recommended. OVERALL FINAL ASSESSMENT: BI-RADS CATEGORY 1: Negative. Requested By: EDIS MATTHEW M.D. Dictated By: RICHI PECK M.D. on Mar 25 2013 4:18P This document has been electronically signed by: RICHI PECK M.D. on Mar 25 2013 4:17P Procedure Note Provider, MD Bouchra - 06/07/2016 RICHI PECK M.D. FINAL REPORT ACC# Date Time Exam [id number] Mar 24, 2013 15:47:00 [facility] [address] Screening Mamm Bilat Technologist(s): Yolande Victoria; ; EXAMINATION: Mammogram Technique: Bilateral Full-Field Digital Screening Mammogram was performed. Views obtained: bilateral craniocaudal and bilateral mediolateral oblique. Computer Aided Detection was performed with [employer] 1.3 version 9.3. Mammogram Findings: This is a baseline study. There are scattered fibroglandular densities. There is no suspicious abnormality in either breast. IMPRESSION: Annual screening mammography is recommended. OVERALL FINAL ASSESSMENT: BI-RADS CATEGORY 1: Negative. Requested By: EDIS MATTHEW M.D. Dictated By: RICHI PECK M.D. on Mar 25 2013 4:18P This document has been electronically signed by: RICHI PECK M.D. on Mar 25 2013 4:17P us Historical Provider MD CAN MAMMO PROCEDURES Jessica l Result from Last 3 Months or Most Recently Relevant to Health Maintenance Insurance [facility] PPO [facility] Care Teams Hse Manager Relationship Specialty Start Date End Date Alexandre Bowser MD [address] [place] [address] [place] [address] PCP - General Internal Medicine 10/18/24
== END 2024-12-16 13:28 | disposition home or self-care (01) ==
LOC: ANHFOHIMG 13:28
PROVIDERS: PCP Obstetrics & Gynecology; Visit Provider Obstetrics & Gynecology
DX: Z12.31 Encounter for screening mammogram for malignant neoplasm of breast (principal); R29.890 Loss of height
CPT/HCPCS: 77063; 77067; 77080